=== PATIENT | female | born 1960 | race Caucasian/White ===

== ENCOUNTER → 2018-05-07 | Outpatient (CLI) | payer OTHER ==
[~2018-05-07] MED LIST: DOXYCYCLINE100 M3 PO
== END | disposition home or self-care (01) ==
LOC: CARD 00:01
DX: I65.23 Occlusion and stenosis of bilateral carotid arteries (principal); K76.0 Fatty (change of) liver, not elsewhere classified; K76.9 Liver disease, unspecified; I70.0 Atherosclerosis of aorta; K21.9 Gastro-esophageal reflux disease without esophagitis; R06.02 Shortness of breath; R42 Dizziness and giddiness; R07.89 Other chest pain; Z90.49 Acquired absence of other specified parts of digestive tract; Z90.710 Acquired absence of both cervix and uterus; Z90.722 Acquired absence of ovaries, bilateral

== ENCOUNTER → 2018-05-07 | Outpatient (CLI) | payer OTHER ==
[2018-05-07 09:45] LABS: HEMATOCRIT 40.7 % (37.0-47.0); HEMOGLOBIN 13.4 g/dl (12.0-16.0); MEAN CORPUSCULAR HGB 29.6 pg (27.0-31.0); MEAN CORPUSCULAR HGB CONC 32.9 g/dl (33.0-37.0); MEAN PLATELET VOLUME 9.8 fl (9.6-12.3); PLATELET COUNT AUTOMATED 269 10*3/uL (130-400); RED BLOOD COUNT 4.52 10*6/uL (4.10-5.10); RED CELL DISTRI WIDTH 12.7 % (0-14.5); RETICULOCYTE % 1.84 % (0.50-2.50); WHITE BLOOD COUNT 7.3 10*3/uL (4.8-10.8)
[2018-05-07 10:18] LABS: ALBUMIN 3.6 gm/dl (3.1-4.5); ALKALINE PHOSPHATASE 80 U/L (45-117); BUN 16 mg/dl (7-24); CHLORIDE 107 mmol/L (98-107); CHOLESTEROL 201 mg/dL (<200); CREATININE 0.73 mg/dL (0.55-1.02); GAMMA GLUTAMYL TRANSPEPTIDASE 27 U/L (5-55); HDL CHOLESTEROL 42 mg/dl (40-60); IRON 60 ug/dL (50-170); LDL CHOLESTEROL 128 mg/dL (9-159); POTASSIUM 3.9 mmol/L (3.5-5.1); SGOT/AST 16 IU/L (3-35); SGPT/ALT 25 U/L (12-78); SODIUM 141 mmol/L (136-145); T3 UPTAKE 35 % (31-39); THYROXINE (T4) TOTAL 9.9 ug/dl (4.8-13.9); TOTAL IRON BINDING CAPACITY 325 ug/dl (250-450); TOTAL PROTEIN 7.9 gm/dL (6.4-8.2); TRIGLYCERIDES 154 mg/dl (<150); URIC ACID 4.4 mg/dL (2.6-6.0); VLDL CHOLESTEROL 31 mg/dL (6-40)
[2018-05-07 10:24] LABS: B-hCG (QUALITATIVE) NEGATIVE (NEGATIVE); THYROID STIM HORMONE (HS) 0.936 uIU/ml (0.358-4.75)
[2018-05-07 10:33] LABS: BASOPHILS 1 % (0-1); PLATELET SUFFICIENCY NORMAL (NORMAL); TOTAL CELLS COUNTED 100 #CELLS
[2018-05-07 11:27] LABS: FERRITIN 77.8 ng/mL (10.0-291.0); VITAMIN D, 25-HYDROXY 17.1 ng/mL (30-100)
[2018-05-08 06:39] LABS: TOTAL PROTEIN, SERUM 7.1 g/dL (6.0-8.5)
[2018-05-08 07:10] LABS: RHEUMATOID ARTHRITIS FACTOR <10.0 IU/mL (0.0-13.9)
[2018-05-08 08:11] LABS: DHEA SULFATE 61.9 ug/dL (29.4-220.5); FOLLICLE STIMULATING HORMONE 20.1 mIU/mL (.); LUTEINIZING HORMONE 004283 13.1 mIU/mL (.); PROGESTERONE 004317 <0.1 ng/mL (.); PROLACTIN 004465 8.3 ng/mL (4.8-23.3); SEX HORMONE BINDING GLOBULIN 50.9 nmol/L (17.3-125.0)
[2018-05-09 05:05] LABS: TESTOSTERONE FREE, (DIRECT) 1.8 pg/mL (0.0-4.2)
[2018-05-09 14:11] LABS: ANTI-DSDNA ANTIBODIES 096339 1 IU/mL (0-9)
[2018-05-09 15:06] LABS: A/G RATIO 1.1 (0.7-1.7); ALBUMIN 3.7 g/dL (2.9-4.4); ALPHA-1-GLOBULIN 0.3 g/dL (0.0-0.4); ALPHA-2-GLOBULIN 0.8 g/dL (0.4-1.0); BETA GLOBULIN 1.3 g/dL (0.7-1.3); GAMMA GLOBULIN 1.1 g/dL (0.4-1.8); GLOBULIN, TOTAL 3.4 g/dL (2.2-3.9); M-SPIKE Not Observed g/dL (Not Observed)
[2018-05-09 16:11] LABS: INSULIN-LIKE GROWTH FACTOR-1 59 ng/mL (46-172)
[2018-05-09 20:10] LABS: DEHYDROEPIANDROSTERONE 004100 89 ng/dL (31-701)
== END | disposition home or self-care (01) ==
LOC: LAB 08:42 → US 09:00
PROVIDERS: Family Medicine
DX: E55.9 Vitamin D deficiency, unspecified (principal); M17.11 Unilateral primary osteoarthritis, right knee; R42 Dizziness and giddiness; I70.0 Atherosclerosis of aorta; R79.89 Other specified abnormal findings of blood chemistry; R53.83 Other fatigue; R06.02 Shortness of breath; R10.2 Pelvic and perineal pain; R10.84 Generalized abdominal pain; R07.89 Other chest pain

== ENCOUNTER → 2018-09-21 | Outpatient (CLI) | payer OTHER | END | disposition home or self-care (01) | LOC: ORTHO 01:31 | DX: M25.774 Osteophyte, right foot (principal); M79.89 Other specified soft tissue disorders ==

== ENCOUNTER → 2022-03-31 | Outpatient (CLI) | payer OTHER ==
[2022-03-31 10:04] LABS: BASO # 0.1 10*3/uL (0.0-0.1); BASO % 1.1 % (0.0-1.0); EOS # 0.4 10*3/uL (0.0-0.4); EOS % 4.7 % (1.0-4.0); HEMATOCRIT 42.4 % (37.0-47.0); LYMPH # 2.4 10*3/uL (1.3-4.4); LYMPH % 32.5 % (27.0-41.0); MEAN CORPUSCULAR HGB 29.5 pg (27.0-31.0); MEAN CORPUSCULAR HGB CONC 32.8 g/dl (33.0-37.0); MONO # 0.5 10*3/uL (0.1-1.0); MONO % 6.9 % (3.0-9.0); NEUT % 54.4 % (47.0-73.0); PLATELET COUNT AUTOMATED 256 10*3/uL (130-400); RED BLOOD COUNT 4.71 10*6/uL (4.10-5.10); RED CELL DISTRI WIDTH 12.8 % (0-14.5); RETICULOCYTE % 1.86 % (0.50-2.50); WHITE BLOOD COUNT 7.4 10*3/uL (4.8-10.8)
[2022-03-31 10:07] LABS: BILIRUBIN Negative (Negative); BLOOD Negative (Negative); CLARITY Clear (Clear); COLOR Yellow (Yellow); GLUCOSE Negative (Negative); KETONE Negative (Negative); LEUKO ESTERASE 1+ (Negative); NITRITE Negative (Negative); UROBILINOGEN 0.2 E.U./dl (0.0-1.0)
[2022-03-31 10:28] LABS: FERRITIN 69.5 ng/mL (10.0-291.0); VITAMIN D, 25-HYDROXY 14.6 ng/mL (30-100)
[2022-03-31 10:33] LABS: ALKALINE PHOSPHATASE 80 U/L (45-117); BUN 14 mg/dl (7-24); CHLORIDE 105 mmol/L (98-107); CHOLESTEROL 227 mg/dL (<200); CREATININE 0.61 mg/dL (0.55-1.02); GAMMA GLUTAMYL TRANSPEPTIDASE 48 U/L (5-55); IRON 72 ug/dL (50-170); LDL CHOLESTEROL 135 mg/dL (9-159); SGOT/AST 19 IU/L (3-35); SGPT/ALT 30 U/L (12-78); SODIUM 139 mmol/L (136-145); T3 UPTAKE 35 % (31-39); THYROXINE (T4) TOTAL 9.2 ug/dl (4.8-13.9); TOTAL PROTEIN 7.8 gm/dL (6.4-8.2); TRIGLYCERIDES 261 mg/dl (<150); URIC ACID 4.1 mg/dL (2.6-6.0)
[2022-03-31 10:40] LABS: B-hCG (QUALITATIVE) NEGATIVE (NEGATIVE); THYROID STIM HORMONE (HS) 0.842 uIU/ml (0.358-4.75)
[2022-04-01 05:06] LABS: DHEA SULFATE 59.8 ug/dL (29.4-220.5); FOLLICLE STIMULATING HORMONE 17.6 mIU/mL (.); LUTEINIZING HORMONE 10.1 mIU/mL (.); PROGESTERONE <0.1 ng/mL (.); PROLACTIN 8.4 ng/mL (4.8-23.3); RHEUMATOID FACTOR <10.0 IU/mL (<14.0); SEX HORMONE BINDING GLOBULIN 41.5 nmol/L (17.3-125.0)
[2022-04-01 13:06] LABS: ANTI-DSDNA ANTIBODIES 1 IU/mL (0-9)
[2022-04-02 07:06] LABS: HUMAN GROWTH HORMONE 0.2 ng/mL (0.0-10.0)
[2022-04-04 03:06] LABS: DEHYDROEPIANDROSTERONE 123 ng/dL (31-701)
== END | disposition home or self-care (01) ==
LOC: LAB 09:19
PROVIDERS: ATTEND Family Medicine
DX: E78.5 Hyperlipidemia, unspecified (principal); E55.9 Vitamin D deficiency, unspecified; R79.89 Other specified abnormal findings of blood chemistry; R53.83 Other fatigue; R74.8 Abnormal levels of other serum enzymes